=== PATIENT | female | born 1985 | race Caucasian/White ===

== ENCOUNTER 2018-07-04 17:39 | Emergency (ER) | payer MEDICAID ==
[~2018-07-04] VITALS: Ht 162.6 cm; Wt 68.0 kg
[2018-07-04] MEDS ORDERED: LORazepam 1MG TABLET PO ONE (18:00)
--- NOTE | 2018-07-04 18:02 | NUR ---
PT PLACED IN GOWN, BELONGINGS TO LOCKER. ROOM SECURED, SITTER AT DOORWAY. PT COOPERATIVE WITH CARE AT THIS TIME, EXPLAINED POC. URINE CUP WITH SITTER.
[2018-07-04] MEDS ORDERED: LORazepam 1MG TABLET ONE (18:07)
[2018-07-04 18:21] LABS: BASOPHILS % (AUTO) 1 % (0-1); EOSINOPHILS # (AUTO) 0.09 x10^3/uL (0-0.4); EOSINOPHILS % (AUTO) 1 % (1-7); LYMPHOCYTES # (AUTO) 2.71 x10^3/uL (1-3.4); LYMPHOCYTES % (AUTO) 27 % (22-44); MD NO; MEAN CORPUSCULAR HEMOGLOBIN 29.2 pg (27.0-34.8); MEAN CORPUSCULAR HGB CONC 33.8 g/dL (32.4-35.8); MEAN CORPUSCULAR VOLUME 86.4 fL (80-100); MEAN PLATELET VOLUME 7.6 fL (7.4-10.4); MONOCYTES # (AUTO) 0.64 x10^3/uL (0.2-0.8); MONOCYTES % (AUTO) 7 % (2-9); NEUTROPHILS # (AUTO) 6.45 x10^3/uL (1.8-6.8); NEUTROPHILS % (AUTO) 65 % (42-75); PLATELET COUNT 367 x10^3/uL (130-400); RED CELL DISTRIBUTION WIDTH 13.5 % (9.6-15.2)
[2018-07-04 18:40] LABS: ALBUMIN 3.8 g/dL (3.4-5.0); ANION GAP 8 mmol/L (5-15); CALCIUM 8.5 mg/dL (8.5-10.1); CHLORIDE 109 mmol/L (98-107); SALICYLATE LEVEL 2.3 mg/dL (2.8-20.0)
[2018-07-04 18:42] LABS: ACETAMINOPHEN < 2 mcg/mL (10-30)
--- NOTE | 2018-07-04 20:15 | NUR ---
PT AWAKENED AND ASSISTED IN WALKING TO BR TO PROVIDE URINE SPECIMEN. PT ABLE TO PROVIDE, URINE WALKED TO LAB. SITTER AT DOORWAY, PT BACK TO SLEEP.
[2018-07-04 20:49] LABS: AMPHETAMINE SCREEN, URINE Positive (Negative); BARBITURATE SCREEN, URINE Negative (Negative); BENZODIAZEPINE SCREEN, URINE Negative (Negative); CANNABINOID SCREEN, URINE Positive (Negative); COCAINE SCREEN, URINE Negative (Negative); METHADONE SCREEN, URINE Negative (Negative); OPIATE SCREEN, URINE Negative (Negative)
--- NOTE | 2018-07-04 21:35 | NUR ---
SCAR IN TO SPEAK WITH PT.
--- NOTE | 2018-07-04 22:55 | NUR ---
PER SCAR, PAPERWORK FAXED TO [facility].
--- NOTE | 2018-07-04 23:06 | NUR ---
PRELIM REPORT TO LORETA AT [facility].
--- NOTE | 2018-07-04 23:12 | NUR ---
REPORT TO ALAYNA SHAFFER.
--- NOTE | 2018-07-04 23:20 | NUR ---
packet faxed to [facility].
--- NOTE | 2018-07-04 23:40 | NUR ---
report of pt from magda Gaviria. assuming care of pt at this time.
--- NOTE | 2018-07-05 01:30 | NUR ---
PT SLEEPING IN [facility] AT THIS TIME; MELISSA. SITTER OUTSIDE OF PT ROOM FOR DIRECT OBSERVATION.
--- NOTE | 2018-07-05 02:38 | NUR ---
PT ASLEEP IN [facility]; MELISSA. SITTER OUTSIDE OF ROOM AT THIS TIME FOR DIRECT OBSERVATION OF PT.
--- NOTE | 2018-07-05 02:42 | NUR ---
SPOKE TO LORETA AT [facility]. LORETA IS AWARE THAT SOPHIA COMING FOR PT AT 0315.
[2018-07-05 02:53] VITALS: BP 118/70
--- NOTE | 2018-07-05 03:00 | NUR ---
PT WAS SLEEPING VSS CHECKED STABLE AFEBRILE NO C/O PAIN SITTER AT DOOR
--- NOTE | 2018-07-05 03:46 | NUR ---
Maritza grant in ED - 07/05/18 at 0347 by PEDRITO FSBS IS STABLE VSS FLUIDS IS INFUSING
== END 2018-07-05 04:12 ==
LOC: ED 19:32 → EDIP 19:58 → UNDOADMIN 19:58 → ED 07-05 04:12
DX: R45.851 Suicidal ideations (principal); F17.200 Nicotine dependence, unspecified, uncomplicated; F32.9 Major depressive disorder, single episode, unspecified
CPT/HCPCS: 36415; 80048; 80307; 80329; 82040; 84703; 85025; 99285; G0480

== ENCOUNTER 2018-08-06 20:26 | Emergency (ER) | payer MEDICAID ==
[~2018-08-06] VITALS: Ht 165.1 cm; Wt 64.8 kg
--- NOTE | 2018-08-06 21:24 | NUR ---
PT. TO ED WITH C/O VAGINAL DISCHARGE X 2 WEEKS. DENIES ANY ABD PAIN/N/V/D. REPORTS PERIOD IS LATE. "I NEED TO BE CHECKED FOR AN STD". DOES REPORT FREQUENCY WITH URINATION BUT DENIES ANY PAIN. DEXTER VARMA AT BS NOW FOR PELVIC EXAM.
[2018-08-06] MEDS ORDERED: AZITHROMYCIN 500 MG TABLET PO ONE (21:30)
[2018-08-06] MEDS ORDERED: CEFTRIAXONE 250 MG IM ONE (21:30)
[2018-08-06 21:38] LABS: CLUE CELLS NONE SEEN (NONE SEEN); WET PREP WBCS FEW (FEW)
--- NOTE | 2018-08-06 21:43 | NUR ---
PT. AMBULATORY TO BR WITH STEADY GAIT AND ABLE TO PROVIDE URINE SAMPLE; SENT TO LAB. DR. LLOYD IN TO EVAL PT. PT. DENIES NEEDS AT THIS TIME.
[2018-08-06] MEDS ORDERED: CEFTRIAXONE 250 MG ONE (21:47)
[2018-08-06] MEDS ORDERED: AZITHROMYCIN 250 MG TABLET ONE (21:47)
[2018-08-06] MEDS ORDERED: SERT25TA PO (21:54)
[2018-08-06 21:56] LABS: CULTURE INDICATED? YES; MICROSCOPIC INDICATED
[2018-08-06 22:52] VITALS: BP 123/80
== END 2018-08-06 22:54 | disposition home or self-care (01) ==
LOC: ED 21:52
DX: A59.09 Other urogenital trichomoniasis (principal); F17.210 Nicotine dependence, cigarettes, uncomplicated
CPT/HCPCS: 81001; 81025; 87086; 87210; 87491; 87591; 87808; 93005; 96372; 99284; J0696